=== PATIENT | female | born 2000 | race Caucasian/White ===

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

== ENCOUNTER 2020-09-29 08:00 | Outpatient (CLI) | payer BC, OTHER ==
[2020-09-29 21:21] LABS: CANDIDA GROUP DNA POSITIVE (NEGATIVE); CANDIDA KRUSEI DNA NEGATIVE (NEGATIVE); TRICHOMONAS VAGINALIS DNA NEGATIVE (NEGATIVE)
[2020-09-29 22:46] LABS: TRICHOMONAS VAGINALIS DNA NEGATIVE (NEGATIVE)
== END 2020-09-29 23:59 | disposition home or self-care (01) ==
LOC: LAB.R 08:00
PROVIDERS: ATTEND Obstetrics & Gynecology
DX: N76.0 Acute vaginitis (principal); Z11.3 Encounter for screening for infections with a predominantly sexual mode of transmission
CPT/HCPCS: 87491; 87591; 87661; 87801

== ENCOUNTER 2020-10-05 16:30 | Outpatient (CLI) | payer OTHER ==
[2020-10-06 07:08] LABS: HEPATITIS B SURFACE ANTIGEN NON-REACTIVE (NON-REACTIVE)
[2020-10-06 12:31] LABS: HEPATITIS C ANTIBODY NON-REACTIVE (NON-REACTIVE)
[2020-10-06 12:46] LABS: HIV AG/AB 4TH GEN NON-REACTIVE (NON-REACTIVE)
[2020-10-07 11:20] LABS: HSV 1 IGG TYPE SPECIFIC AB 4.82 index; HSV 2 IGG TYPE SPECIFIC AB <0.90 index
== END 2020-10-05 16:31 | disposition home or self-care (01) ==
LOC: LAB 16:30
PROVIDERS: ATTEND Obstetrics & Gynecology
DX: Z11.3 Encounter for screening for infections with a predominantly sexual mode of transmission (principal)
CPT/HCPCS: 36415; 81599; 86592; 86593; 86695; 86696; 86780; 86803; 87340; 87389

== ENCOUNTER 2020-12-27 15:44 | Outpatient (CLI) | payer OTHER ==
[2020-12-29 08:56] LABS: NIL 0.02 IU/mL
== END 2020-12-27 15:45 | disposition home or self-care (01) ==
LOC: LAB 15:44
PROVIDERS: ATTEND Family Medicine
DX: Z11.1 Encounter for screening for respiratory tuberculosis (principal)
CPT/HCPCS: 36415; 86480

== ENCOUNTER 2022-03-04 14:27 | Outpatient (CLI) | payer OTHER | END 2022-03-04 14:28 | disposition home or self-care (01) | LOC: LAB 14:27 | PROVIDERS: ATTEND Family Medicine | DX: Z11.1 Encounter for screening for respiratory tuberculosis (principal) | CPT/HCPCS: 81599; 86480 ==

== ENCOUNTER 2023-03-19 16:42 | Outpatient (CLI) | payer OTHER | END 2023-03-19 16:43 | disposition home or self-care (01) | LOC: LAB 16:42 | PROVIDERS: ATTEND Specialist | DX: R05.9 Cough, unspecified (principal) | CPT/HCPCS: 81599; 86480 ==